=== PATIENT | male | born 1965 | race Caucasian/White ===

== ENCOUNTER 2021-01-15 10:25 | Day surgery (SDC) | payer OTHER ==
[~2021-01-15] VITALS: Ht 193 cm; Wt 163.4 kg
[~2021-01-15 10:25] MED LIST: ALBU90OI INH; FENO145 PO; LOSARTAN-HCTZ1 EAC5 PO
== END 2021-01-15 12:40 | disposition home or self-care (01) ==
LOC: ORSCSDS 10:25
PROVIDERS: Internal Medicine Gastroenterology
PROC: 0DBL8ZX Excision of Transverse Colon, Via Natural or Artificial Opening Endoscopic, Diagnostic (ICD-10-PCS; principal; 2021-01-15 11:45)
DX: Z12.11 Encounter for screening for malignant neoplasm of colon (principal); D12.3 Benign neoplasm of transverse colon; K57.30 Diverticulosis of large intestine without perforation or abscess without bleeding; K64.8 Other hemorrhoids; I10 Essential (primary) hypertension; G47.33 Obstructive sleep apnea (adult) (pediatric); K21.9 Gastro-esophageal reflux disease without esophagitis; Z87.891 Personal history of nicotine dependence; Z79.899 Other long term (current) drug therapy; E66.01 Morbid (severe) obesity due to excess calories; Z68.41 Body mass index [BMI] 40.0-44.9, adult
CPT/HCPCS: 88305; J2704; J7120

== ENCOUNTER 2022-04-18 16:10 | Emergency (ER) | payer OTHER ==
[~2022-04-18] VITALS: Ht 193 cm; Wt 163.3 kg
[2022-04-18 16:59] LABS: BASOPHILS ABSOLUTE AUTO 0.05 K/mm3 (0.00-0.23); BASOPHILS PERCENT AUTO 1 % (0-2); EOSINOPHILS ABSOLUTE AUTO 0.21 K/mm3 (0.00-0.68); EOSINOPHILS PERCENT AUTO 3 % (0-6); Hematocrit 39.4 % (37.0-53.0); Hemoglobin 13.1 g/dL (13.5-17.5); IMMATURE GRAN ABSOLUTE AUTO 0.03 K/mm3 (0.00-0.10); IMMATURE GRAN PERCENT AUTO 0 % (0-1); LYMPHOCYTES ABSOLUTE AUTO 2.84 K/mm3 (0.84-5.20); LYMPHOCYTES PERCENT AUTO 34 % (21-46); MONOCYTES ABSOLUTE AUTO 1.08 K/mm3 (0.16-1.47); MONOCYTES PERCENT AUTO 13 % (4-13); Mean Corpuscular HGB 30.2 pg (26.0-34.0); Mean Corpuscular HGB Conc 33.2 g/dL (31.5-36.5); Mean Corpuscular Volume 91 fL (80-100); Mean Platelet Volume 10.5 fL (9.1-12.4); NEUTROPHILS ABSOLUTE AUTO 4.19 K/mm3 (1.96-9.15); NEUTROPHILS PERCENT AUTO 50 % (41-73); Platelet Count 239 K/mm3 (150-400); RDW Coefficient Variation 13.2 % (11.7-14.2); RDW Standard Deviation 43.5 fL (35.1-46.3); Red Blood Cell Count 4.34 M/mm3 (4.30-5.90)
[2022-04-18 17:15] LABS: Albumin, Blood 4.1 g/dL (3.4-5.0); Albumin/Globulin Ratio 1.3 (0.8-1.8); Bilirubin, Total 0.5 mg/dL (0.1-1.0); Bun/Creatinine Ratio 19.4 (12.0-20.0); Calcium, Blood 9.4 mg/dL (8.5-10.1); Creatinine, Blood 1.39 mg/dL (0.60-1.20); Globulin, Blood 3.1 g/dL (2.2-4.0); Potassium, Blood 3.4 mmol/L (3.5-5.5); Total Protein, Blood 7.2 g/dL (6.4-8.2)
== END 2022-04-18 22:09 | disposition home or self-care (01) ==
LOC: ER 16:10
PROVIDERS: Physician Assistant
DX: S30.821A Blister (nonthermal) of abdominal wall, initial encounter (principal); K42.9 Umbilical hernia without obstruction or gangrene; X58.XXXA Exposure to other specified factors, initial encounter; Z79.899 Other long term (current) drug therapy
CPT/HCPCS: 74176; 80053; 85025

== ENCOUNTER 2022-10-18 11:00 | Observation (INO) | payer OTHER ==
[~2022-10-18] VITALS: Ht 193 cm; Wt 170.0 kg
[~2022-10-18 11:00] MED LIST changes: +IRBESARTAN-HCT1 EAC2 PO
[2022-10-18] MEDS ORDERED: Metoprolol Succ25 MG PO (11:23)
[2022-10-18 11:51] LABS: BASOPHILS ABSOLUTE AUTO 0.05 K/mm3 (0.00-0.23); BASOPHILS PERCENT AUTO 1 % (0-2); EOSINOPHILS ABSOLUTE AUTO 0.12 K/mm3 (0.00-0.68); EOSINOPHILS PERCENT AUTO 2 % (0-6); Hemoglobin 13.4 g/dL (13.5-17.5); IMMATURE GRAN ABSOLUTE AUTO 0.03 K/mm3 (0.00-0.10); IMMATURE GRAN PERCENT AUTO 1 % (0-1); LYMPHOCYTES ABSOLUTE AUTO 1.66 K/mm3 (0.84-5.20); LYMPHOCYTES PERCENT AUTO 27 % (21-46); MONOCYTES ABSOLUTE AUTO 0.66 K/mm3 (0.16-1.47); MONOCYTES PERCENT AUTO 11 % (4-13); Mean Corpuscular HGB 30.9 pg (26.0-34.0); Mean Corpuscular HGB Conc 34.4 g/dL (31.5-36.5); Mean Corpuscular Volume 90 fL (80-100); Mean Platelet Volume 10.2 fL (9.1-12.4); NEUTROPHILS ABSOLUTE AUTO 3.57 K/mm3 (1.96-9.15); NEUTROPHILS PERCENT AUTO 59 % (41-73); Platelet Count 223 K/mm3 (150-400); RDW Coefficient Variation 12.9 % (11.7-14.2); RDW Standard Deviation 42.6 fL (35.1-46.3); Red Blood Cell Count 4.34 M/mm3 (4.30-5.90); White Blood Cell Count 6.09 K/mm3 (4.00-11.30)
[2022-10-18 12:08] LABS: Albumin, Blood 4.1 g/dL (3.4-5.0); Albumin/Globulin Ratio 1.3 (0.8-1.8); Bilirubin, Total 0.5 mg/dL (0.1-1.0); Bun/Creatinine Ratio 16.2 (12.0-20.0); Calcium, Blood 9.5 mg/dL (8.5-10.1); Creatinine, Blood 0.99 mg/dL (0.60-1.20); Globulin, Blood 3.2 g/dL (2.2-4.0); Potassium, Blood 4.1 mmol/L (3.5-5.5); Total Protein, Blood 7.3 g/dL (6.4-8.2)
--- NOTE | 2022-10-18 16:49 | NUR ---
ADMISSION/ SHIFT SUMMARY PT AXO, PLEASANT AND COOPERATIVE WITH CARE. PT ARRIVED TO ROOM FROM ER AT 1520 VIA GURNEY AND TRANSFERRED INDEPENDENTLY TO BED IN ROOM. PT'S SPOUSE PRESENT ON ADMISSION. ADMISSION PROCESS COMPLETED. PT TOLERATED WELL. PT VSS. 98% ON RA. HOME CPAP IN CAR, PT SPOUSE WILL BRING TO ROOM SOON. PT DENIES SOB, NV AND PAIN THOUGH STATES HE HAS A POOR APPETITE. PT ORIENTED TO ROOM. BED IN LOW POSITION, CALL LIGHT WITHIN REACH. PT ABLE TO CALL APPROPRIATELY. EDUCATION ON NEW MEDICATION, LIPITOR GIVEN TO PATIENT.
[2022-10-19 04:25] LABS: Hematocrit 37.2 % (37.0-53.0); Mean Corpuscular HGB Conc 34.9 g/dL (31.5-36.5); Mean Corpuscular Volume 89 fL (80-100); Mean Platelet Volume 10.1 fL (9.1-12.4); Platelet Count 219 K/mm3 (150-400); RDW Coefficient Variation 12.9 % (11.7-14.2); RDW Standard Deviation 41.8 fL (35.1-46.3); Red Blood Cell Count 4.19 M/mm3 (4.30-5.90); White Blood Cell Count 5.98 K/mm3 (4.00-11.30)
[2022-10-19 04:44] LABS: Anion Gap 6 mmol/L (6-16); Blood Urea Nitrogen 17 mg/dL (8-24); Bun/Creatinine Ratio 18.9 (12.0-20.0); CO2, Blood 23 mmol/L (21-32); Calcium, Blood 9.1 mg/dL (8.5-10.1); Chloride, Blood 111 mmol/L (98-108); Cholesterol 116 mg/dL (50-200); Glomerular Filtration Rate 98 (60-); Glucose, Blood 125 mg/dL (70-99); Potassium, Blood 3.9 mmol/L (3.5-5.5); Sodium, Blood 140 mmol/L (136-145); Triglycerides 113 mg/dL (30-160)
--- NOTE | 2022-10-19 04:58 | NUR ---
SHIFT SUMMARY NOC PT A/O X 4. PLEASANT AND COOPERATIVE WITH CARE. PT ADMIT FOR TIA AND NEURO CHECKS PERFORMED Q2H WITH NO ACUTE CHANGES TO REPORT. PT WAS AT BEDSIDE AT SHIFT CHANGE WITH HOME RX WHICH I TOLD HER TO TAKE HOME WITH HER BECAUSE PT WOULD RECEIVE SAME RX DURING STAY. RT CAME AND MADE SURE PT CPAP WAS SET UP PROPERLY AND PT SLEPT FOR MAJORITY OF SHIFT. PT ON CX BIOX FOR SLEEP AND SPO2 > 96% WITH CPAP. PT HAS ECHO SCHEDULED FOR TODAY WELL AN MRI AT [facility] DUE TO PT SIZE. PT HAD C/O MILD PAIN UNDER LEFT RIBCAGE WHICH SUBSIDED SHORTLY AFTER WITH RX. PT IS CURRENTLY RESTING WITH BED IN LOWEST POSITION, AND CALL LIGHT WITHIN REACH. [facility].
[2022-10-19 10:48] LABS: Magnesium, Blood 2.1 mg/dL (1.6-2.4); Thyroid Stimulating Hormone 1.4 uIU/mL (0.360-4.800)
[2022-10-19] MEDS ORDERED: ATOR40TA PO (12:27)
[2022-10-19] MEDS ORDERED: ASPI81CH PO (12:27)
[2022-10-19] MEDS ORDERED: CLOP75 PO (12:28)
--- NOTE | 2022-10-19 12:56 | NUR ---
DC HOME WRITTEN & VERBAL DC INSTRUCTIONS GIVEN TO PT WITH PRESENT, BOTH VERBALIZED GOOD UNDERSTANDING. ALL QUESTIONS & CONCERNS ADDRESSED. PIV DC'D WITH CATH TIP INTACT, NO REDNESS OR SWELLING NOTED. NEW SCRIPTS WERE FAXED TO [facility] PER PT REQUEST. PT TO PV VIA W/C WITH ALL PERSONAL BELONGINGS.
== END 2022-10-19 13:24 | disposition home or self-care (01) ==
LOC: ER 11:00 → MEDS 11:01
PROVIDERS: Emergency Medicine; Internal Medicine; ADMIT Internal Medicine
DX: G45.9 Transient cerebral ischemic attack, unspecified (principal); G47.33 Obstructive sleep apnea (adult) (pediatric); K76.0 Fatty (change of) liver, not elsewhere classified; I10 Essential (primary) hypertension; E88.81 Metabolic syndrome and other insulin resistance; I49.9 Cardiac arrhythmia, unspecified; Z87.891 Personal history of nicotine dependence; Z79.899 Other long term (current) drug therapy
CPT/HCPCS: 36415; 70450; 80048; 80053; 82465; 83036; 83735; 84443; 84478; 85025; 85027; 93005; 93010; 93306; 93880; 94660; 94762; 99285-25; A9270; G0378

== ENCOUNTER → 2022-11-12 | Outpatient (CLI) | payer OTHER ==
[~2022-11-12] MED LIST changes: +ASPI81CH PO; +ATOR40TA PO; +CLOP75 PO; +Metoprolol Succ25 MG PO
[2022-11-12 11:23] LABS: BASOPHILS ABSOLUTE AUTO 0.05 K/mm3 (0.00-0.23); BASOPHILS PERCENT AUTO 1 % (0-2); EOSINOPHILS PERCENT AUTO 4 % (0-6); Hematocrit 39.8 % (37.0-53.0); Hemoglobin 13.3 g/dL (13.5-17.5); IMMATURE GRAN ABSOLUTE AUTO 0.01 K/mm3 (0.00-0.10); IMMATURE GRAN PERCENT AUTO 0 % (0-1); LYMPHOCYTES PERCENT AUTO 38 % (21-46); MONOCYTES ABSOLUTE AUTO 0.58 K/mm3 (0.16-1.47); MONOCYTES PERCENT AUTO 10 % (4-13); Mean Corpuscular HGB 30.4 pg (26.0-34.0); Mean Corpuscular HGB Conc 33.4 g/dL (31.5-36.5); Mean Corpuscular Volume 91 fL (80-100); Mean Platelet Volume 10.6 fL (9.1-12.4); NEUTROPHILS PERCENT AUTO 47 % (41-73); Platelet Count 228 K/mm3 (150-400); RDW Coefficient Variation 13.1 % (11.7-14.2); RDW Standard Deviation 43.8 fL (35.1-46.3); Red Blood Cell Count 4.37 M/mm3 (4.30-5.90); White Blood Cell Count 5.74 K/mm3 (4.00-11.30)
[2022-11-12 12:07] LABS: Alanine Aminotransfer (ALT/SGP 56 U/L (12-78); Albumin, Blood 3.9 g/dL (3.4-5.0); Albumin/Globulin Ratio 1.3 (0.8-1.8); Alk Phos 49 U/L (50-136); Anion Gap 6 mmol/L (6-16); Aspartate Aminotrans (AST/SGOT 29 U/L (12-37); Bilirubin, Total 0.6 mg/dL (0.1-1.0); Blood Urea Nitrogen 21 mg/dL (8-24); Bun/Creatinine Ratio 20.2 (12.0-20.0); CHOL/HDL RATIO 2.1; CO2, Blood 24 mmol/L (21-32); Calcium, Blood 9.2 mg/dL (8.5-10.1); Chloride, Blood 109 mmol/L (98-108); Cholesterol 74 mg/dL (50-200); Creatinine, Blood 1.04 mg/dL (0.60-1.20); Globulin, Blood 3.1 g/dL (2.2-4.0); Glomerular Filtration Rate 83 (60-); Glucose, Blood 117 mg/dL (70-99); HDL Cholesterol 36 mg/dL (>39); LDL/HDL RATIO 0.7; Low Density Lipoprotein Chol 24 mg/dL (0-110); Potassium, Blood 4.2 mmol/L (3.5-5.5); Prostate Specific Antigen 0.785 ng/mL (0.000-4.000); Sodium, Blood 139 mmol/L (136-145); Triglycerides 69 mg/dL (30-160); Very Low Density Lipoprot Chol 13 mg/dL (6-32)
== END | disposition home or self-care (01) ==
LOC: LAB SHORT 09:56 → LAB 09:56
PROVIDERS: Family Medicine
DX: I10 Essential (primary) hypertension (principal); N42.9 Disorder of prostate, unspecified; R73.01 Impaired fasting glucose
CPT/HCPCS: 80053; 80061; 83036; 84153; 85025

== ENCOUNTER → 2023-03-16 | Outpatient (CLI) | payer OTHER | END | disposition home or self-care (01) | LOC: LAB SHORT 09:01 → LAB 09:01 | DX: R31.29 Other microscopic hematuria (principal) | CPT/HCPCS: 87086 ==

== ENCOUNTER 2023-03-28 13:22 | Inpatient (IN) | payer OTHER ==
[~2023-03-28] VITALS: Ht 193 cm; Wt 162.9 kg
[2023-03-28 14:28] LABS: BASOPHILS ABSOLUTE AUTO 0.05 K/mm3 (0.00-0.23); BASOPHILS PERCENT AUTO 0 % (0-2); EOSINOPHILS PERCENT AUTO 1 % (0-6); Hematocrit 42.6 % (37.0-53.0); Hemoglobin 14.5 g/dL (13.5-17.5); IMMATURE GRAN ABSOLUTE AUTO 0.03 K/mm3 (0.00-0.10); IMMATURE GRAN PERCENT AUTO 0 % (0-1); LYMPHOCYTES ABSOLUTE AUTO 2.89 K/mm3 (0.84-5.20); LYMPHOCYTES PERCENT AUTO 25 % (21-46); MONOCYTES ABSOLUTE AUTO 0.91 K/mm3 (0.16-1.47); MONOCYTES PERCENT AUTO 8 % (4-13); Mean Corpuscular HGB 30.3 pg (26.0-34.0); Mean Corpuscular Volume 89 fL (80-100); NEUTROPHILS ABSOLUTE AUTO 7.83 K/mm3 (1.96-9.15); NEUTROPHILS PERCENT AUTO 66 % (41-73); Platelet Count 256 K/mm3 (150-400); RDW Coefficient Variation 12.7 % (11.7-14.2); RDW Standard Deviation 41.2 fL (35.1-46.3); Red Blood Cell Count 4.79 M/mm3 (4.30-5.90); White Blood Cell Count 11.81 K/mm3 (4.00-11.30)
[2023-03-28 14:37] LABS: Albumin, Blood 4.4 g/dL (3.4-5.0); Albumin/Globulin Ratio 1.4 (0.8-1.8); Bilirubin, Total 0.5 mg/dL (0.1-1.0); Bun/Creatinine Ratio 16.2 (12.0-20.0); Calcium, Blood 9.9 mg/dL (8.5-10.1); Creatinine, Blood 1.05 mg/dL (0.60-1.20); Globulin, Blood 3.1 g/dL (2.2-4.0); Potassium, Blood 3.9 mmol/L (3.5-5.5); Total Protein, Blood 7.5 g/dL (6.4-8.2)
[2023-03-28] MEDS ORDERED: TOPROL XL50 MG PO (16:32)
[2023-03-28] MEDS ORDERED: LOSA50 PO (16:32)
[2023-03-28] MEDS ORDERED: PANTOPRAZOLE SO2010 PO (16:33)
[2023-03-28] MEDS ORDERED: LOSARTAN-HCTZ1 EAC6 PO (16:33)
[2023-03-28 17:51] LABS: Source, Urine Clean Catch
[2023-03-28 18:06] LABS: Appearance, Urine Clear (Clear); Bilirubin, Urine Neg (Neg); Blood, Urine Neg (Neg); Color, Urine Yellow (P-Yellow); Glucose Qualitative, Urine Neg (Neg); Ketones, Urine Neg (Neg); Leukocyte Esterase, Urine 1+ (Neg); Nitrite, Urine Neg (Neg); Protein, Urine 2+ (Neg); Urobilinogen, Urine 1+ (Normal)
[2023-03-28 18:47] LABS: Red Blood Cells, Urine 0-2 /hpf (0-2)
[2023-03-28 18:48] LABS: Bacteria Few /hpf; Mucus Light (0-Heavy); Squamous Epithelial Cells Few /hpf (Few)
[2023-03-29] VITALS (11 sets, daily range): BP systolic 86–144; BP diastolic 49–102
--- NOTE | 2023-03-29 01:53 | NUR ---
PT RECIEVED FROM OR. ALERT AND ORIENTED X4. SBA GURNEY TO BED DECLINES DIZZINESS, NAUSEA, PAIN. CPAP INITIATED.
[2023-03-29 05:47] LABS: Hemoglobin 12.9 g/dL (13.5-17.5); Mean Corpuscular HGB 30.7 pg (26.0-34.0); Mean Corpuscular HGB Conc 33.9 g/dL (31.5-36.5); Mean Corpuscular Volume 91 fL (80-100); Mean Platelet Volume 10.4 fL (9.1-12.4); Platelet Count 206 K/mm3 (150-400); RDW Standard Deviation 42.5 fL (35.1-46.3); White Blood Cell Count 9.44 K/mm3 (4.00-11.30)
[2023-03-29 06:16] LABS: Albumin, Blood 3.6 g/dL (3.4-5.0); Albumin/Globulin Ratio 1.2 (0.8-1.8); Bilirubin, Total 0.4 mg/dL (0.1-1.0); Calcium, Blood 9.1 mg/dL (8.5-10.1); Creatinine, Blood 1.19 mg/dL (0.60-1.20); Globulin, Blood 2.9 g/dL (2.2-4.0); Potassium, Blood 4.3 mmol/L (3.5-5.5); Total Protein, Blood 6.5 g/dL (6.4-8.2)
--- NOTE | 2023-03-29 17:53 | NUR ---
SHIFT SUMMARY PT AXO, PLEASANT AND COOPERATIVE WITH CARE. VSS. PT VOMITING COPIOUS AMOUNTS AFTER LUNCH. DR SMART NOTIFIED AND MEDICATIONS ADMINISTERED PER EMAR. PT CURRENTLY NPO. PT MEDICATED FOR PAIN PER EMAR WELL. PT SLEEPING WITH SPOUSE AT BEDSIDE AND CAUTIOUSLY ON CPAP. EDUCATED ON RISKS OF ASPIRATION WITH WEARING CPAP AND RISK OF VOMITING. PT'S SPOUSE EXPRESSES UNDERSTANDING AND STATES THAT PATIENT WOULD REMOVE CPAP PRIOR TO THROWING UP. IGNITION ASSESSMENT COMPLETED. PT DENIES IGNITION SOURCE IN POSSESSION. NS AT 100, IV PATENT AND INFUSING PER EMAR. BED IN LOW POSITION, CALL LIGHT WITHIN REACH.
[2023-03-29] MEDS ORDERED: LOSARTAN POTAS100 M1 PO (22:31)
[2023-03-29] MEDS ORDERED: FENOFIBRATE145 MG PO (22:31)
--- NOTE | 2023-03-30 02:43 | NUR ---
LATE ENTRY 0030 PT REPORTS INABLILITY TO SLEEP BECAUSE HIS MOUTH AND THROAT ARE DRY FROM CPAP. PT WONDERING IF FAULTY MACHINE. RT NOTIFIED. TREATED PAIN PER EMAR AT THIS TIME
[2023-03-30 04:47] VITALS: BP 135/73
[2023-03-30 05:23] LABS: BASOPHILS ABSOLUTE AUTO 0.01 K/mm3 (0.00-0.23); BASOPHILS PERCENT AUTO 0 % (0-2); EOSINOPHILS ABSOLUTE AUTO 0.03 K/mm3 (0.00-0.68); EOSINOPHILS PERCENT AUTO 1 % (0-6); Hematocrit 37.7 % (37.0-53.0); Hemoglobin 12.4 g/dL (13.5-17.5); IMMATURE GRAN ABSOLUTE AUTO 0.01 K/mm3 (0.00-0.10); IMMATURE GRAN PERCENT AUTO 0 % (0-1); LYMPHOCYTES ABSOLUTE AUTO 0.91 K/mm3 (0.84-5.20); LYMPHOCYTES PERCENT AUTO 18 % (21-46); MONOCYTES ABSOLUTE AUTO 0.91 K/mm3 (0.16-1.47); MONOCYTES PERCENT AUTO 18 % (4-13); Mean Corpuscular HGB 30.4 pg (26.0-34.0); Mean Corpuscular HGB Conc 32.9 g/dL (31.5-36.5); Mean Corpuscular Volume 92 fL (80-100); Mean Platelet Volume 10.9 fL (9.1-12.4); NEUTROPHILS PERCENT AUTO 64 % (41-73); Platelet Count 199 K/mm3 (150-400); RDW Coefficient Variation 13.2 % (11.7-14.2); RDW Standard Deviation 44.6 fL (35.1-46.3); Red Blood Cell Count 4.08 M/mm3 (4.30-5.90); White Blood Cell Count 5.17 K/mm3 (4.00-11.30)
[2023-03-30 05:50] LABS: Bun/Creatinine Ratio 15.7 (12.0-20.0); Calcium, Blood 8.6 mg/dL (8.5-10.1); Creatinine, Blood 1.15 mg/dL (0.60-1.20); Potassium, Blood 4.2 mmol/L (3.5-5.5)
--- NOTE | 2023-03-30 06:35 | NUR ---
NO ACUTE CHANGES OVERNIGHT. NO BM. CPAP DURING NIGHT, MODERATE PAIN PT STATED SORE FROM VOMITING, TREATED PER EMAR. TOLORATED SIPS OF WATER THROUGHOUT THE NIGHT. NO OTHER COMPLAINTS TONIGHT. PT USING BEDSIDE URINAL. SBA. BED IS IN THE LOWEST POSITION WITH CALL LIGHT IN REACH. PT DENIES HAVING ANY IGNITION SOURCES. NAUSEA WITH PAIN REPORTED AT 0600, TREATED PER EMAR. NO EMESIS YET REPORTS ABDOMINAL CRAMPING
[2023-03-30 07:43] VITALS: BP 144/74
--- NOTE | 2023-03-30 13:53 | NUR ---
NG TUBE PER WE WILL HOLD OFF PLACING THE NG TUBE, SINCE THE PT IS PASSING GAS AND NOT VOMITING AT THIS TIME. WE WILL PLACE THE TUBE IF THE PT STARTS TO VOMIT AGAIN
[2023-03-30 15:38] VITALS: BP 129/74
--- NOTE | 2023-03-30 17:21 | NUR ---
PT IS A/OX4, PLEASANT AND COOPERATIVE. THE PT IS UP IND IN HIS ROOM. THE PT HAD N/V THIS AM, GREEN BILE. THE PT WAS MEDICATED FOR NAUSEA. THE PT ALSO HAD ABD CRAMPING PAIN, THE PT WAS GIVEN TORADOL. THE PAIN AND NAUSEA SUBSIDED. THE PT WAS PASSING GAS. THIS AFTERNOON THE PT WAS MEDICATED FOR PAIN AND NAUSEA X1 MORE TIME. SINCE THEN THE PT HAS BEEN UP MOVING IN HIS ROOM AND REPORTED SEVERAL BOWEL MOVEMNETS. THE PT REPORTS THAT HIS PAIN AND NAUSEA HAS SUBSIDED. THE PT IS TRYING CLEAR LIQUIDS AND WILL TRY SOFT DIET FOR DINNER. CALL LIGHT IN REACH. THE PTS SO IS AT THE BEDSIDE. WILL CONTINUE TO MONITOR AND ASSESS FOR CHANGES
[2023-03-30 19:53] VITALS: BP 126/66
[2023-03-31 03:22] VITALS: BP 155/90
--- NOTE | 2023-03-31 03:58 | NUR ---
SHIFT SUMMARY PATIENT A/Ox4, PLEASANT AFFECT. DENIES PAIN NOR DISCOMFORT. STATES PASSING GAS, AND HAS HAD MULTIPLE BMs. DENIES N/V, STATES FEELING MUCH BETTER, TOLERATED DINER WELL. ABD LAP SITES SEALED AND KHANH, NO DRAINAGE. UMBILICLE SITE DSG IS C/D/I. INDEPENDANT IN ROOM. PIV TO LEFT AC, PATENT, SL. PATIENT EDUCATED ON FIRE SAFETY AND RISK OF INJURY R/T OXYGEN USE, VERBALIZED UNDERSTANDING, DENIES HAVING ANY ACCESS TO SOURCES OF IGNITION. BED IN LOW POSITION, CALL LIGHT WITHIN REACH.
[2023-03-31 05:29] LABS: BASOPHILS ABSOLUTE AUTO 0.02 K/mm3 (0.00-0.23); BASOPHILS PERCENT AUTO 0 % (0-2); EOSINOPHILS ABSOLUTE AUTO 0.15 K/mm3 (0.00-0.68); EOSINOPHILS PERCENT AUTO 3 % (0-6); Hematocrit 34.7 % (37.0-53.0); Hemoglobin 11.5 g/dL (13.5-17.5); IMMATURE GRAN ABSOLUTE AUTO 0.01 K/mm3 (0.00-0.10); IMMATURE GRAN PERCENT AUTO 0 % (0-1); LYMPHOCYTES ABSOLUTE AUTO 1.42 K/mm3 (0.84-5.20); LYMPHOCYTES PERCENT AUTO 32 % (21-46); MONOCYTES ABSOLUTE AUTO 0.76 K/mm3 (0.16-1.47); MONOCYTES PERCENT AUTO 17 % (4-13); Mean Corpuscular HGB 30.5 pg (26.0-34.0); Mean Corpuscular HGB Conc 33.1 g/dL (31.5-36.5); Mean Corpuscular Volume 92 fL (80-100); Mean Platelet Volume 10.7 fL (9.1-12.4); NEUTROPHILS ABSOLUTE AUTO 2.14 K/mm3 (1.96-9.15); NEUTROPHILS PERCENT AUTO 48 % (41-73); Platelet Count 175 K/mm3 (150-400); RDW Standard Deviation 43.7 fL (35.1-46.3); Red Blood Cell Count 3.77 M/mm3 (4.30-5.90)
[2023-03-31 05:54] LABS: Albumin, Blood 3.1 g/dL (3.4-5.0); Albumin/Globulin Ratio 1.1 (0.8-1.8); Bilirubin, Total 0.6 mg/dL (0.1-1.0); Bun/Creatinine Ratio 17.6 (12.0-20.0); Calcium, Blood 8.8 mg/dL (8.5-10.1); Creatinine, Blood 1.02 mg/dL (0.60-1.20); Globulin, Blood 2.7 g/dL (2.2-4.0); Potassium, Blood 3.9 mmol/L (3.5-5.5); Total Protein, Blood 5.8 g/dL (6.4-8.2)
[2023-03-31 08:26] VITALS: BP 155/88
[2023-03-31] MEDS ORDERED: HYDR1TAB94 PO (10:26)
--- NOTE | 2023-03-31 12:36 | NUR ---
pt discharged THE PT VERBALIZED UNDERSTANDING OF THE DC INSTRUCTIONS. THE PT WAS GIVEN A PRESCRIPTION FOR PAIN MEDICATION. THE PT WAS INSTRUCTED ON CARE FOR HIS SURGICAL WOUND. THE PTS PCP AND ERNESTINAEON WAS CONTACTED FOR FOLLOW UP APPOINTMNETS. THS PT WAS TRANSFERED VIA WHEELCHAIR TO THE FRONT ACCOMPANIED BY THE TEAR DOWN WORKER AND HIS
== END 2023-03-31 11:10 | disposition home or self-care (01) | DRG 354 ==
LOC: ER 13:22 → SURS 20:31 → MEDS 20:31 → ENPENDDIS 03-31 09:17 → MEDS 03-31 11:10
PROVIDERS: Hospitalist; Nurse Practitioner Acute Care; Student in an Organized Health Care Education/Training Program; ADMIT Internal Medicine
PROC: 0WQF4ZZ Repair Abdominal Wall, Percutaneous Endoscopic Approach (ICD-10-PCS; principal; 2023-03-29)
PROC: 8E0W4CZ Robotic Assisted Procedure of Trunk Region, Percutaneous Endoscopic Approach (ICD-10-PCS; 2023-03-29)
DX: K42.0 Umbilical hernia with obstruction, without gangrene (principal); Z68.41 Body mass index [BMI] 40.0-44.9, adult; I10 Essential (primary) hypertension; G47.33 Obstructive sleep apnea (adult) (pediatric); E78.5 Hyperlipidemia, unspecified; K21.9 Gastro-esophageal reflux disease without esophagitis; E66.01 Morbid (severe) obesity due to excess calories; Z86.73 Personal history of transient ischemic attack (TIA), and cerebral infarction without residual deficits; Z79.899 Other long term (current) drug therapy
CPT/HCPCS: 36415; 74018; 74177; 76857; 80048; 80053; 81001; 83605; 83690; 85025; 85027; 87086; 93005; 93010; 94660; 94760; 94762; 96361; 96374-59; 96375; 96376; 97161; 97530; 99285-25; A9270; C9113; J0330; J0690; J0780; J1100; J1170; J1885; J2270; J2405; J2704; J3010; J7030; Q9967

== ENCOUNTER 2023-07-14 06:02 | Day surgery (SDC) | payer OTHER ==
[~2023-07-14] VITALS: Ht 193 cm; Wt 155.2 kg
[2023-07-14] VITALS (13 sets, daily range): BP systolic 113–170; BP diastolic 64–85
[~2023-07-14 06:02] MED LIST changes: +FENOFIBRATE145 MG PO; +HYDR1TAB94 PO; +LOSA50 PO; +LOSARTAN POTAS100 M1 PO; +LOSARTAN-HCTZ1 EAC6 PO; +PANTOPRAZOLE SO2010 PO; +TOPROL XL50 MG PO
[2023-07-14] MEDS ORDERED: LOSA50 PO (06:28)
--- NOTE | 2023-07-14 07:03 | NUR ---
History, Chart, Medications and Allergies reviewed before start of procedure. Lungs clear T/O to Auscultation. Patient confirms NPO status and agrees with scheduled surgery. Pre-Op teaching done. Pt verbalizes understanding. Patient reports completing Chlorhexadine shower X2 prior to admission to hospital.
--- NOTE | 2023-07-14 08:22 | NUR ---
07/14/23 0822 MARY JACKSON NOTED RAZOR BURN LIKE MARKINGS ACROSS MIDDLE ABD PRIOR TO OR BRING BACK. DR RICHTER AWARE.
--- NOTE | 2023-07-14 10:36 | NUR ---
PT AWAKE, C/O NAUSEA. REGLAN GIVEN IV. PT WITH ABD BINDER IN PLACE. 4 SMALL INCISION WITH SKIN GLUE, NO DRAINAGE. BACK TO BEDSIDE.
--- NOTE | 2023-07-14 11:03 | NUR ---
PT ABLE TO EAT JELLO AND A FEW BITES OF CRACKERS. REPORTS PAIN INCREASING SLIGHTLY. PT REPORT READY TO TRY A PAIN PILL. CASSI REYNOLDSD.
--- NOTE | 2023-07-14 11:55 | NUR ---
Patient up to Ambulate independently. Gait steady. VSS AND CONSISTENT WITH PT BASELINE. Discharge instructions reviewed with patient. Patient verbalizes understanding. Copy given to patient to take home. Dressing to procedure site clean, dry, intact with no visible drainage, swelling, erythema or bruising noted. Patient States Post-Procedure ride home has been arranged. Discharged via wheelchair to private car for ride home. PT BELONGINGS RETURNED TO PT.
== END 2023-07-14 11:57 | disposition home or self-care (01) ==
LOC: ORSCMMR 06:02 → ORD 07:30 → ORSCMMR 11:57
PROVIDERS: Surgery
PROC: 0WUF4JZ Supplement Abdominal Wall with Synthetic Substitute, Percutaneous Endoscopic Approach (ICD-10-PCS; principal; 2023-07-14 07:30)
PROC: 8E0W4CZ Robotic Assisted Procedure of Trunk Region, Percutaneous Endoscopic Approach (ICD-10-PCS; principal; 2023-07-14 07:30)
DX: K42.0 Umbilical hernia with obstruction, without gangrene (principal); I10 Essential (primary) hypertension; G47.33 Obstructive sleep apnea (adult) (pediatric); E78.00 Pure hypercholesterolemia, unspecified; E66.01 Morbid (severe) obesity due to excess calories; Z68.41 Body mass index [BMI] 40.0-44.9, adult; Z79.899 Other long term (current) drug therapy
CPT/HCPCS: A9270; C1781; J0690; J1100; J1790; J1885; J2250; J2405; J2704; J2765; J3010; J7120